=== PATIENT | female | born 1985 | race Caucasian/White ===

== ENCOUNTER 2018-10-11 00:57 | Emergency (ER) | payer MEDICAID, SELFPAY ==
[2018-10-11 01:03] VITALS: BP 124/78; PULSE 69; RESP 18; TEMP 37; O2SAT 100
--- NOTE | 2018-10-11 01:05 | ED.GENADUL_ITS ---
Discharge Plan Disposition Patient Disposition: HOME Condition: Good Discharge Details Chief Complaint: Abd Prob Clinical Impression: Nausea and vomiting, Abdominal cramping Primary Care Provider: None,None ED Provider: Carlos Trammell Meds and New Rx's Prescriptions: New promethazine 25 mg suppository 25 mg TN Q6H PRN (Reason: nausea and vomiting) Qty: 12 RF: 0 hyoscyamine sulfate [Levsin/SL] 0.125 mg tablet, sublingual 0.125 mg SL BID-QID PRN (Reason: cramps) Qty: 10 RF: 0 Discharge Instructions Instructions: Acute Nausea and Vomiting (ED) Additional Instructions: Stick with a clear liquid diet today and start slowly. Would not try advancing until much later this evening or tomorrow morning. Promethazine suppository for nausea and vomiting. Sublingual Levsin for abdominal spasms. Return to ED for fever, persistent vomiting, worsening pain, other concerns or problems. Follow-up with primary on return home. Medical Decision Making Patient arrives complaining of upper abdominal pain, nausea and vomiting. She is hyperventilating and appears uncomfortable. However, she is afebrile with normal vital signs and has a benign abdomen. I cannot elicit any tenderness or guarding throughout. IV established. We will start fluids and give Phenergan. Laboratory studies obtained. Laboratory studies have returned essentially unremarkable. White count is slightly elevated. Potassium is slightly low. Neither is of any clinical significance. Lipase is normal. Liver function is fine. She is now sleeping after the IV Phenergan. States that she is feeling much better. We will give a second liter of fluid and then give p.o. challenge with ice chips. Patient did tolerate the ice chips but developed stomach cramping. She was rather uncomfortable and was given Levsin sublingual. Subsequently had a small amount of emesis. Now asleep with no complaints. Would like to go home. Will discharge with a prescription for promethazine and Levsin. Clear liquids for today. May begin advancing diet tomorrow. Return to ED for fever, persistent vomiting, worsening abdominal pain, other problems concerns. Lab Data Lab results reviewed: Yes I reviewed the patient's lab results. HPI General Mode of arrival: wheelchair . Date/Time Provider Initiated Documentation: 10/11/18 01:04 . Information obtained by: patient and family . HPI Narrative: Patient presents to the emergency department with complaint of upper abdominal pain, nausea, vomiting. [place] . There was no [place] or tropical travel. For the last 12 hours she has had abdominal pain that has progressively got worse and has subsequently developed constant emesis. There has been no blood or coffee-ground emesis. There is no associated diarrhea. Pain does not seem to radiate to the chest or back. She has episodes of hyperventilating because of the pain. This is causing spasm in her hands and feet. She denies fever or headache. She denies urinary symptoms. She has had no previous surgeries on her abdomen. Related Data Home Medications Medication Instructions Recorded Confirmed hyoscyamine sulfate [Levsin/SL] 0.125 mg SL BID-QID PRN #10 tab 10/11/18 promethazine 25 mg TN Q6H PRN #12 each 10/11/18 Previous Rx's Medication Instructions Recorded hyoscyamine sulfate [Levsin/SL] 0.125 mg SL BID-QID PRN #10 tab 10/11/18 promethazine 25 mg TN Q6H PRN #12 each 10/11/18 Allergies Allergy/AdvReac Type Severity Reaction Status Date / Time amoxicillin Allergy Unknown Skin Rash Unverified 10/11/18 01:03 General Stated Complaint: Abd Prob VINOD: 3 Review of Systems Review of Systems 12/08 Review of Systems completed and is negative except as stated above in HPI (Systems reviewed: Const, Eyes, ENT, Resp, CV, GI, , MSK, Skin, Neuro) PFSH Medical History Migraine (Chronic) Surgical History H/O knee surgery (Acute) Social History Smoking/Tobacco Use Status: Never Drug use: Never Exam Narrative Exam Narrative: Vitals: Afebrile with normal vital signs and normal pulse oximetry. Const: WDWN female hyperventilating, diaphoretic. HEENT: NC/AT. Normal facial exam. Eyes: Normal conjunctiva and sclera. Neck: Supple. Trachea midline. Lungs: Normal respiratory effort. Lungs are clear. Cor: RRR without murmur/gallop. Good radial pulses. GI: Soft and non-distended. No tenderness to palpation. No guarding. No HSM. Neuro: A+O x 3. Grossly normal and non-focal neuro exam. Ext: No C/C/E. No deformity or tenderness. No calf tenderness. Skin: Diaphoretic. No rash. Course Vital Signs Temperature 98.6 F 10/11/18 01:03 Pulse 69 10/11/18 01:03 Respiratory Rate 18 10/11/18 01:03 Blood Pressure 124/78 10/11/18 01:03 Pulse Oximetry 100 10/11/18 01:03 Temperature 98.6 F 10/11/18 01:03 Temperature Source Skin 10/11/18 01:03 Pulse 69 10/11/18 01:03 Respiratory Rate 18 10/11/18 01:03 Blood Pressure 124/78 10/11/18 01:03 Pulse Oximetry 100 10/11/18 01:03 Oxygen Delivery Method Room Air 10/11/18 01:03 Oxygen Flow Rate 0 10/11/18 01:03 Pain Level 8 10/11/18 01:03
[2018-10-11] MEDS: Normal Saline 1,000 ML 1000 ML IV ×2 (01:15→01:56)
[2018-10-11 01:28] LABS: Abs Immature Grans 0.03 k/cumm (0.0-0.09); Absolute Basophil Count 0.02 k/cumm (0.0-0.2); Absolute Eosinophil Count 0.01 k/cumm (0.0-0.7); Absolute Neutrophil Count 10.95 k/cumm (1.2-6.7); Basophils % 0.2; Eosinophils % 0.1; HCT 41.1 % (36.0-46.0); Immature Grans % 0.2; Lymphocytes % 8.8; Mean Corp. HGB Concentration 34.1 g/dL (32.0-36.0); Mean Corpuscular Hemoglobin 29.4 pg (27.0-33.0); Mean Corpuscular Volume 86.2 fL (80-95); Mean Platelet Volume 10.8 fL (8.0-11.0); Neutrophils % 87.7; Platelet Count 419 x1000/uL (130-400); RBC 4.77 m/cumm (4.00-5.20); RBC Distribution Width 13.9 % (11.7-14.6); White Blood Cell Count 12.49 k/cumm (4.4-10.8)
[2018-10-11 01:31] LABS: Absolute Monocyte Count 0.37 k/cumm (0.11-0.7)
[2018-10-11 01:37] LABS: HCG Qual (Serum) Negative
[2018-10-11 01:43] LABS: ALT 25 U/L (12-78); AST 21 U/L (15-37); Albumin 4.6 g/dL (3.4-5.0); Alkaline Phosphatase 43 U/L (46-116); Anion Gap 13.3 mmol/L (3-11); BUN 18 mg/dL (7-18); Bilirubin, Total 0.7 mg/dL (0.2-1.0); CO2 23.7 mmol/L (21.0-32.0); CREATININE 0.82 mg/dL (0.55-1.02); Calcium 9.5 mg/dL (8.5-10.1); Chloride 101 mmol/L (98-107); Glucose 106 mg/dL (70-100); Lipase 95 U/L (73-393); Potassium 3.3 mmol/L (3.5-5.1); Sodium 138 mmol/L (136-145)
[2018-10-11 02:46] VITALS: BP 106/65; PULSE 74; RESP 18; O2SAT 97
--- NOTE | 2018-10-11 02:51 | NUR.NOTE ---
patient given ice chips Nursing Note:
[2018-10-11] MEDS: Hyoscyamine 0.125 MG SL/ORAL/CHEW SL (03:44)
--- NOTE | 2018-10-11 03:45 | NUR.NOTE ---
patient medicated per MD order Nursing Note:
[2018-10-11] MEDS: Promethazine 25 MG SUPP PR (04:32)
== END 2018-10-11 04:32 | disposition home or self-care (01) ==
PROVIDERS: Emergency Provider Emergency Medicine
DX: R11.2 Nausea with vomiting, unspecified (principal); R10.10 Upper abdominal pain, unspecified
CPT/HCPCS: 36415; 80053; 83690; 96361; 96365; 99284; 84703; 85025; J3490

== ENCOUNTER 2018-12-17 14:48 | Outpatient (REF) | payer MEDICAID, SELFPAY ==
--- NOTE | 2018-12-17 13:20 | PAPFT_PTH ---
PATIENT: DARRELL TURK LOC: [facility] U#:[id number] AGE/SX: 33/F ROOM: RE12/17/[address]: Isabel Adams NP : 1985 BED: DIS: 12/17/2018 SPEC #: [id number] RECD: 12/18/18 13:16 STATUS: NAINBen REQ #: [id number] SUMAN: 12/17/18 13:[address]: Isabel Adams NP DEPT: [facility] Cytology RECD BY: Clare Garcia ENTERED: 12/18/18 13:17 SP TYPE: PAPFT OT DR: None Tissues: 1 - CX/ENDOCX FOR PAP SMEARS Procedures: PAP THIN PREP/[facility] Screening HPV DNA PROBE Comments: [id number] (CHLAMYDIA/GC)
[2018-12-19 12:42] LABS: Chlamydia Result Negative; GC Result Negative; Specimen Description SEE COMMENTS
== END 2018-12-17 15:08 ==
LOC: LBN 14:48
PROVIDERS: Visit Provider Nurse Practitioner Women's Health
DX: Z11.3 Encounter for screening for infections with a predominantly sexual mode of transmission (principal); Z12.4 Encounter for screening for malignant neoplasm of cervix; Z11.51 Encounter for screening for human papillomavirus (HPV)
CPT/HCPCS: 87491; 87591; 88142; 87624